=== PATIENT | female | born 2000 | race Caucasian/White ===

== ENCOUNTER 2023-06-29 16:13 | Outpatient (CLI) | payer MEDICAID | END 2023-06-29 23:59 | disposition home or self-care (01) | LOC: RAD 16:13 | PROVIDERS: ATTEND Physician Assistant | DX: N92.6 Irregular menstruation, unspecified (principal); Z97.5 Presence of (intrauterine) contraceptive device | CPT/HCPCS: 76830; 76856; 93976 ==

== ENCOUNTER 2023-07-13 22:16 | Emergency (ER) | payer MEDICAID ==
[~2023-07-13] VITALS: Ht 165.1 cm; Wt 79.5 kg
[2023-07-13] MEDS: famotidine 20mg tablet PO ONE (23:01)
[2023-07-13] MEDS: diphenhydrAMINE 25mg capsule PO ONE (23:01)
[2023-07-13] MEDS: dexamethasone sod phosphate 10mg/ml inj PO STA (23:03)
[2023-07-13] MEDS ORDERED: FAMO-129 PO (23:25)
[2023-07-13] MEDS ORDERED: PRED20TA PO (23:25)
[2023-07-13] MEDS ORDERED: LORA10TA7 PO (23:25)
[2023-07-13 23:47] VITALS: BP 121/86; PULSE 70; RESP 16; TEMP 97.8; O2SAT 100
== END 2023-07-13 23:48 | disposition home or self-care (01) ==
LOC: ER 22:17
DX: T78.40XA Allergy, unspecified, initial encounter (principal); X58.XXXA Exposure to other specified factors, initial encounter
CPT/HCPCS: 99284; J1100; Q0163

== ENCOUNTER 2023-11-30 17:03 | Emergency (ER) | payer MEDICAID ==
[~2023-11-30] VITALS: Ht 170.2 cm; Wt 67.0 kg
[~2023-11-30 17:03] MED LIST: FAMO-129 PO; LORA10TA7 PO
[2023-11-30 17:17] VITALS: BP 140/87; PULSE 83; TEMP 98.8; O2SAT 96
[2023-11-30] MEDS: LIDOcaine 1% 30ml preserv. free vial IJ STA (17:55)
[2023-11-30 18:32] VITALS: RESP 16
== END 2023-11-30 18:33 | disposition home or self-care (01) ==
LOC: ER 17:04
DX: L60.0 Ingrowing nail (principal); Z88.0 Allergy status to penicillin; Z88.1 Allergy status to other antibiotic agents; Z79.899 Other long term (current) drug therapy
CPT/HCPCS: 11750; 99285; A6222; A6449

== ENCOUNTER 2024-06-09 17:38 | Emergency (ER) | payer MEDICAID ==
[~2024-06-09] VITALS: Ht 165.1 cm; Wt 84.5 kg
[2024-06-09] MEDS: mupirocin 2% ointment 22GM TP STA (18:32)
[2024-06-09 18:38] VITALS: BP 137/99; PULSE 98; RESP 16; TEMP 98.2; O2SAT 98
== END 2024-06-09 18:41 | disposition home or self-care (01) ==
LOC: ER 17:39
DX: L29.9 Pruritus, unspecified (principal); Z88.0 Allergy status to penicillin; Z88.1 Allergy status to other antibiotic agents; Z88.2 Allergy status to sulfonamides
CPT/HCPCS: 99283

== ENCOUNTER 2024-11-28 14:46 | Emergency (ER) | payer MEDICAID ==
[~2024-11-28] VITALS: Ht 165.1 cm; Wt 84.1 kg
[2024-11-28 14:55] VITALS: BP 172/114; PULSE 106; RESP 18; TEMP 98.6; O2SAT 99
[2024-11-28] MEDS ORDERED: normal saline 1000ML IV soln IVB ONE (15:00)
[2024-11-28] MEDS ORDERED: ondansetron/PF 4mg/2ml inj IV ONE (15:00)
[2024-11-28] MEDS ORDERED: ketorolac trometh 15mg/ml vial 15 MG/ML ML IV ONE (15:00)
--- NOTE | 2024-11-28 15:00 | Physician Documentation ---
History of Present Illness Chief Complaint: Abdominal Pain Stated Complaint: ABD PAIN Primary Medical Doctor: None HPI 24-year-old female presents to the emergency department due to concerns for onset of abdominal pain yesterday. She describes it as located in the center of the abdomen, is accompanied by nausea, vomiting, diarrhea. No blood in stool or vomit. Highest temp she has recorded as 100.2. Medication Reconciliation Allergies: Coded Allergies: sulfamethoxazole (Verified Allergy, Mild, RASH, 06/09/24) trimethoprim (Verified Allergy, Mild, RASH, 06/09/24) Penicillins (Verified Allergy, Unknown, 06/09/24) amoxicillin (Verified Allergy, Unknown, 06/09/24) Scheduled Famotidine (Pepcid), 1 TAB PO Q12H Loratadine (Loratadine), 1 TAB PO DAILY Past Medical History Past Medical History: No Pertinent History Past Surgical History: no surgical history Drug Use: none Lives In: Home Review of Systems ROS As stated above in the HPI, otherwise all systems are reviewed and negative. Physical Exam Vital Signs: Temperature: 98.6, Source: Temporal, Heart Rate: 106, Respiratory Rate: 18, BP: 172/114, Pulse Oximetry: 99, Weight: 84.090 Physical Exam General: Alert, no apparent distress. Neck: Full range of motion. Respiratory: Lungs clear, no respiratory distress. Chest: No accessory muscle use. Cardiovascular: Regular rate and rhythm, no murmurs. Gastrointestinal: Soft,TTP, nondistended. Bowels sounds present. Extremities: Normal range of motion, no deformity. Neurologic: Oriented x4. Psychiatric: Normal mood and affect. Skin: Normal color, warm and dry. No edema, no ecchymosis. Progress Results/Orders Results/Orders Vital Signs 11/28/24 14:55 Temp 98.6 Pulse 106 Resp 18 B/P (MAP) 172/114 Pulse Ox 99 Departure Referrals: NO PRIMARY CARE PROVIDER (PCP) Signature Scribe Signature: x Attestation: The note accurately reflects work and decisions made by me.Zach Jerez NP 11/28/24 14:59 ZACH ENNIS NP Nov 28, 2024 15:00
[2024-11-28 15:32] LABS: MEAN PLATELET VOLUME 8.3 FL (7.4-10.4); RED CELL DISTRIBUTION WIDTH 13.1 % (11.5-14.5)
[2024-11-28 15:55] LABS: CREATININE 0.65 MG/DL (0.40-0.90); TOTAL CARBON DIOXIDE 27.0 MMOL/L (24-32); eCRCL 121 ML/MIN; eGFR > 90 ML/MIN
[2024-11-28 16:37] LABS: LYMPHOCYTES % (MANUAL) 18.0 % (21-51); MONOCYTES % (MANUAL) 17.0 % (2-12); NEUTROPHILS % (MANUAL) 65.0 % (42-75)
[2024-11-28 16:38] LABS: PLATELET ESTIMATE NORMAL
== END 2024-11-28 20:11 | disposition left against medical advice (07) ==
LOC: ER 14:47
DX: R11.2 Nausea with vomiting, unspecified (principal); R19.7 Diarrhea, unspecified
CPT/HCPCS: 36415; 80053; 82150; 83690; 85007; 85025; 99283

== ENCOUNTER 2024-12-01 08:03 | Emergency (ER) | payer MEDICAID ==
[~2024-12-01] VITALS: Ht 165.1 cm; Wt 87.8 kg
[2024-12-01 08:32] LABS: LEUKOCYTE ESTERASE ,URINE NEGATIVE (Neg); NITRITES, URINE NEGATIVE (Neg); OCCULT BLOOD,URINE NEGATIVE (Neg)
[2024-12-01 08:33] LABS: URINE HCG NEGATIVE (NEG)
[2024-12-01 08:43] LABS: UA COLLECTION TYPE CLN CATCH MIDSTREAM
[2024-12-01 09:00] LABS: MEAN PLATELET VOLUME 8.1 FL (7.4-10.4); RED CELL DISTRIBUTION WIDTH 13.0 % (11.5-14.5)
[2024-12-01 09:16] LABS: CREATININE 0.61 MG/DL (0.40-0.90); TOTAL CARBON DIOXIDE 26.3 MMOL/L (24-32); eCRCL 129 ML/MIN; eGFR > 90 ML/MIN
[2024-12-01] MEDS ORDERED: DICY20TA17 PO (11:11)
--- NOTE | 2024-12-01 11:16 | Physician Documentation ---
History of Present Illness Chief Complaint: Abdominal Pain Stated Complaint: ABD PAIN DIARRHEA Time Seen by MD: 10:04 OK to notify your PCP?: Yes Primary Medical Doctor: None HPI 24-year-old female presents with diffuse abdominal cramping. On Tuesday she started having an upset stomach and thought it was possibly the flu. She was having a fever with vomiting and diarrhea on both Tuesday and Tuesday with a decreased appetite. She reports having eggs for breakfast on Tuesday but no other new foods to her diet. She reports that she usually does not have a eggs. She was unable to keep food down on those 2 days and started to feel better on and Tuesday. Early this morning woke up with diarrhea and abdominal cramping again. She reports that her abdomen was quite distended and painful to touch and she was having yellow foamy diarrhea without fever. Her pain has decreased some since this morning. Medication Reconciliation Allergies: Coded Allergies: sulfamethoxazole (Verified Allergy, Mild, RASH, 12/01/24) trimethoprim (Verified Allergy, Mild, RASH, 12/01/24) Penicillins (Verified Allergy, Unknown, 12/01/24) amoxicillin (Verified Allergy, Unknown, 12/01/24) Scheduled Dicyclomine HCl (Dicyclomine HCl), 1 TAB PO Q8H Famotidine (Pepcid), 1 TAB PO Q12H Loratadine (Loratadine), 1 TAB PO DAILY Past Medical History Past Medical History: No Pertinent History Past Surgical History: no surgical history Drug Use: none Lives In: Home Review of Systems All Other Systems at this time: Reviewed and Negative Physical Exam Vital Signs: RN Vital Signs have been reviewed: Yes, Temperature: 97.8, Source: Temporal, Heart Rate: 90, Respiratory Rate: 18, BP: 136/97, Pulse Oximetry: 98, Weight: 87.800 Oxygen Flow Rate: 0 Pulse Oximetry Reflects: adequate oxygenation Physical Exam General: Alert, no apparent distress. HEENT: PERRL, EOMI, no injection, moist mucous membranes. Neck: Full range of motion. Respiratory: Lungs clear, no respiratory distress. Chest: No accessory muscle use. Cardiovascular: Regular rate and rhythm, no murmurs. Gastrointestinal: Soft, nondistended. Bowels sounds present. Tenderness to palpation along left and right lower quadrant, no rebound tenderness or guarding, no McBurney's point tenderness. Extremities: Normal range of motion, no deformity. Neurologic: Oriented x4. Psychiatric: Normal mood and affect. Skin: Normal color, warm and dry. No edema, no ecchymosis. Progress Results/Orders Reviewed/noted all lab results: Yes Results/Orders Orders - ALVINA WADE [employer]URN[employer] RECEIVING CLERK Occult Bld Stool (12/01/24 10:19) Cult Stool (Enteric Pathogens) (12/01/24 10:19) Vital Signs 12/01/24 12/01/24 08:07 09:42 Temp 97.8 97.8 Pulse 103 90 Resp 18 18 B/P (MAP) 149/92 136/97 (110) Pulse Ox 99 98 O2 Flow Rate 0 0 Laboratory Tests Test 12/01/24 08:15 12/01/24 08:36 12/01/24 10:26 Urine Specimen Description Cln catch midstream Urine Color Straw Urine Clarity Clear Urine pH 6.0 Urine Specific [place] <=1.005 Urine Protein Negative Urine Glucose (UA) Negative Urine Ketones Negative Urine Occult Blood Negative Urine Nitrite Negative Urine Bilirubin Negative Urine Urobilinogen 0.2 Urine Leukocyte Esterase Negative Urine Culture Indicated Not ind Volume Urine Centrifuged 10 ml Urine HCG, Qualitative Negative Urine Comment White Blood Count 5.2 Red Blood Count 4.80 Hemoglobin 14.6 Hematocrit 41.4 Mean Corpuscular Volume 86.2 Mean Corpuscular Hemoglobin 30.4 Mean Corpuscular Hemoglobin Concent 35.3 Red Cell Distribution Width 13.0 Platelet Count 234 Mean Platelet Volume 8.1 Neutrophils (%) (Auto) 67.4 Lymphocytes (%) (Auto) 23.0 Monocytes (%) (Auto) 8.6 Eosinophils (%) (Auto) 0.6 Basophils (%) (Auto) 0.4 Neutrophils # (Auto) 3.5 Lymphocytes # (Auto) 1.2 Monocytes # (Auto) 0.4 Eosinophils # (Auto) 0.0 Basophils # (Auto) 0.0 CBC Comment Sodium Level 139 Potassium Level 3.7 Chloride Level 107 Carbon Dioxide Level 26.3 Anion Gap 6 L Blood Urea Nitrogen 5 L Creatinine 0.61 Estimated GFR/1.73 m2 > 90 BUN/Creatinine Ratio 8.2 L Glucose Level 103 Calcium Level 8.2 L Total Bilirubin 1.0 Aspartate Amino Transf (AST/SGOT) 45 H Alanine Aminotransferase (ALT/SGPT) 59 Alkaline Phosphatase 92 Total Protein 7.7 Albumin 3.4 Globulin 4.3 Albumin/Globulin Ratio 0.8 L Lipase 33 Chemistry Comments Medical Decision Making Additional info obtained from: old records Findings She is presenting with abdominal pain with yellow foamy stools. I am suspicious for possible Giardia and we have sent off a culture of her stool as well as a test for ova and parasites. This is a send out test so results are not readily available. We discussed her symptoms and the most concerning would be her abdominal cramping for which I prescribed Bentyl that she can take as needed. Her labs were unremarkable. Her vital signs are stable and she is nontoxic appearing. Her physical exam is unremarkable except for some tenderness to palpation along left lower quadrant and right lower quadrant. She does still have an appendix and we discussed early symptoms of appendicitis. She was given strict return instructions. Differential Dx:Considerations: Include: Appendicitis, Bowel obstruction, Cholelithasis, Diverticular disease, Gastroenteritis, Inflammatory BD, Ischemic bowel, Ovarian cyst/torsion, Pancreatitis, PID Departure Disposition: HOME / SELF CARE / HOMELESS Impression: Primary Impression: Abdominal pain Condition: Stable Discharge Instructions: Abdominal Pain (Nonspecific) Additional Instructions: We have sent off a culture of your stool to look for any parasites that could be causing your symptoms. This can take up to 3 days to get these results. Please take the Bentyl as needed for abdominal cramping. Start eating foods from the BRAT diet such as bananas, rice, applesauce and toast as these are easy for your body to process and should not further upset your stomach. Drink plenty of water. Return back here for any new or worsening symptoms. Referrals: NO PRIMARY CARE PROVIDER (PCP) Prescriptions Dicyclomine HCl (Dicyclomine HCl) 20 Mg Tablet 1 TAB PO Q8H for abdominal cramping for 10 Days, #30 TAB 0 Refills Prov: ALVINA WADE [facility] 12/01/24 Education Educated: Patient Educated regarding: diagnosis, treatment, prognosis, need for follow up Additional Comment Medical Screen Exam This patient recieved a medical screening examination. After reviewing the individual's medical complaints with presenting symptoms and performing an appropriate physical examination, it was determined that no immediate life- threatening emergency medical condition is present. This individual is also not a women having contractions. Signature Scribe Signature: . Attestation: Scribed for Alvina Wade [employer] Cutting Machine Operator by Alvina Jerez NP . 12/01/24 11:14 Parts of this note were created using [employer] voice recognition software program. While efforts were made to correct any mistakes made by this voice recognition software program, nonsensical phrases may remain in this note. In addition, there may be errors and syntax, grammar, content and spelling. ALVINA WADE [facility] Dec 01, 2024 11:16
[2024-12-01 11:40] VITALS: BP 130/90; PULSE 92; RESP 16; TEMP 98; O2SAT 98
[2024-12-01 11:48] LABS: OCCULT BLOOD STOOL NEGATIVE (Neg)
== END 2024-12-01 11:41 | disposition home or self-care (01) ==
LOC: ER 08:03
DX: R10.9 Unspecified abdominal pain (principal); R19.7 Diarrhea, unspecified; R50.9 Fever, unspecified
CPT/HCPCS: 36415; 80053; 81003; 81025; 82272; 83690; 85025; 87045; 87046; 99283